=== PATIENT | female | born 1995 | race Caucasian/White ===

== ENCOUNTER 2017-05-05 01:51 | Emergency (ER) | payer BC ==
[2017-05-05] MEDS ORDERED: Ondansetron ODT TAB* 4 MG PO ONE (02:28)
[2017-05-05] MEDS ORDERED: Metoclopramide IV* 5 MG/ML 2 ML VIAL IV SLOW PU ONE (03:16)
[2017-05-05 03:30] LABS: ABS Basophils 0 10^3/ul (0-0.2); ABS Eosinophils 0 10^3/ul (0-0.6); ABS Monocytes 0.3 10^3/ul (0-0.8); ABS Neutrophils 1.8 10^3/ul (1.5-7.7); ABS Nucleated RBC 0 10^3/ul; Eosinophil % 0.7 % (0-6); Hematocrit 39 % (35-47); Hemoglobin 13.2 g/dl (12.0-16.0); Lymphocyte % 57.3 % (25-47); Mean Corpuscular HGB Conc 34 g/dl (31-36); Mean Corpuscular Hemoglobin 31 pg (27-31); Mean Corpuscular Volume 91 fL (80-97); Mean Platelet Volume 7 um3 (7.4-10.4); Nucleated Red Blood Cells % 0.2; Platelet Count 195 10^3/ul (150-450); Red Blood Count 4.27 10^6/ul (4.0-5.4); Red Cell Distribution Width 13 % (10.5-15); White Blood Count 5.2 10^3/ul (3.5-10.8)
[2017-05-05] MEDS: NS 0.9% 1000 ML* 2,000 ML IV ONE (04:00)
[2017-05-05] MEDS ORDERED: Potassium Chlor TAB* 20 MEQ TAB.ER PO ONE (05:56)
--- NOTE | 2017-05-05 06:30 | ED ---
Justo Martin Tecjoon, scribed for Shelbie Snider MD on 05/05/17 at 0315 . Substance Abuse/Use - HPI Summary HPI Summary: This patient is a 21 year old female presenting to [facility] accompanied by friend with a chief complaint of EtOH intoxication since earlier today. Patient was at a bar and her friends left to another bar. Patients friend noticed her, intoxicated, and unable to ambulate. Patients friend states she was worried and decided to bring her to ED. Patient complains of nausea. Patient denies vomiting. HPI Limited due to Level 5 Caveat: AMS - History Of Current Complaint Chief Complaint: EDSubstanceAbuse Stated Complaint: ETOH Time Seen by Provider: 05/05/17 03:04 Hx Obtained From: Other: - friend Hx From Patient Unobtainable Due To: Altered Mental Status Hx Last Menstrual Period: 3 WEEKS AGO Onset/Duration of Drug/ETOH Abuse: Hours Ingestion History: Type/Name Of Drug - EtOH Overdose Characteristics: Oral Severity Currently: Moderate Character: Stuporous Aggravating Factor(s): Nothing Alleviating Factor(s): Nothing Associated Signs And Symptoms: Negative - vomiting, Other: - nausea - Allergies/Home Medications Allergies/Adverse Reactions: Allergies Allergy/AdvReac Type Severity Reaction Status Date / Time Penicillins Allergy Severe Hives Verified 05/05/17 01:57 PMH/Surg Hx/FS Hx/Imm Hx Previously Healthy: Yes - PMHx Limited due to lvl 5 caveat: AMS Endocrine/Hematology History: Denies: Hx Diabetes, Hx Thyroid Disease Cardiovascular History: Denies: Hx Congestive Heart Failure, Hx Deep Vein Thrombosis, Hx Hypertension , Hx Myocardial Infarction, Hx Pacemaker/ICD Respiratory History: Reports: Hx Asthma - She does not use an inhaler for this regularly. Denies: Hx Chronic Obstructive Pulmonary Disease (COPD), Hx Lung Cancer, Hx Pneumonia, Hx Pulmonary Embolism GI History: Denies: Hx Gall Bladder Disease, Hx Gastrointestinal Bleed, Hx Ulcer, Hx Urosepsis History: Denies: Hx Kidney Stones, Hx Renal Disease Neurological History: Denies: Hx Dementia, Hx Migraine, Hx Seizures, Hx Transient Ischemic Attacks (TIA) Psychiatric History: Denies: Hx Anxiety, Hx Depression, Hx Schizophrenia, Hx Bipolar Disorder - Immunization History Date of Tetanus Vaccine: UTD Date of Influenza Vaccine: 2014 Infectious Disease History: No Infectious Disease History: Denies: Traveled Outside the [place] in Last 30 Days - Family History Known Family History: Positive: Other - FHx Colon CA - maternal Negative: Cardiac Disease, Hypertension, Diabetes - Social History Lives: Dormitory/Roommates Alcohol Use: Occasionally Hx Substance Use: No Substance Use Type: Reports: None Hx Tobacco Use: No Smoking Status (MU): Never Smoked Tobacco Review of Systems Negative: Fever Positive: Nausea. Negative: Vomiting All Other Systems Reviewed And Are Negative: No - Comments Additional Review of Systems Comments: ROS Limited due to lvl 5 Caveat: AMS Physical Exam - Summary Physical Exam Summary: VITAL SIGNS: Reviewed. GENERAL: Alcohol on Breath. Patient is responsive to pain. HEAD AND FACE: No signs of trauma. No ecchymosis, hematomas or skull depressions. No sinus tenderness. LUNGS: Clear to auscultation bilaterally. No wheezing or crackles. CVS: Regular rate and rhythm, S1 and S2 present, no murmurs or gallops appreciated. SKIN: Dry and warm Triage Information Reviewed: No Vital Signs On Initial Exam: Initial Vitals Temp Pulse Resp BP Pulse Ox 98.6 F 88 16 116/76 99 05/05/17 01:55 05/05/17 01:55 05/05/17 01:55 05/05/17 01:55 05/05/17 01:55 Vital Signs Reviewed: No Completion Of Physical Exam Limited Due To: Altered Mental Status, Level 5 Diagnostics - Vital Signs Vital Signs Temp Pulse Resp BP Pulse Ox 05/05/17 01:55 98.6 F 88 16 116/76 99 - Laboratory Result Diagrams: 05/05/17 02:35 05/05/17 02:35 Lab Statement: Any lab studies that have been ordered have been reviewed, and results considered in the medical decision making process. Course/Dx - Course Course Of Treatment: This patient is a 21 year old female presenting to [facility] [place] accompanied by friend with a chief complaint of EtOH intoxication since earlier today. Bloodwork Obtained. Urinalysis Obtained. In the ED course the patient was given Reglan, Potassium Chlor, Zofran. Patient will be diagnosed with alcohol intoxication and discharged. Patient is advised to follow up with PCP in 3 days. The patient is agreeable with this plan. - Diagnoses Provider Diagnoses: Alcohol intoxication Discharge - Discharge Plan Condition: Stable Disposition: HOME Patient Education Materials: Alcohol Intoxication (ED) Referrals: Nu Andrew PA [Primary Care Provider] - 3 Days Additional Instructions: Patient will be diagnosed with alcohol intoxication and discharged. Patient is advised to follow up with PCP in 3 days. The patient is agreeable with this plan. Return to the ED for new or persisting symptoms. The documentation as recorded by the Justo daniel Tecjoon accurately reflects the service I personally performed and the decisions made by , Shelbie Snider MD.
[2017-05-05 06:38] VITALS: BP 127/79
== END 2017-05-05 06:48 | disposition home or self-care (01) ==
LOC: ED 01:51
DX: F10.129 Alcohol abuse with intoxication, unspecified (principal); R11.0 Nausea
CPT/HCPCS: 36415; 80053; 80320; 84702; 85025; 96374; 99282; A9270-GY; G0480; J2765